=== PATIENT | female | born 1955 | race African-American/Black ===

== ENCOUNTER 2020-10-04 12:21 | Outpatient (CLI) | payer MEDICARE, SELFPAY ==
--- NOTE | ~2020-10-04 | MM_ITS ---
EXAMINATION: MM stereotactic bx RT, MM post biopsy diagnostic RT, MM stereotactic specimen RT, Specim en Radiograph, Tissue Marker Clip Placement, Unilateral Mammogram DATE: 10/04/2020 13:52 (accession [id number]), 10/04/2020 13:50 (accession [id number]), 10/04 13:49 (accession [id number]) INDICATION: Abnormal mammogram: Upper-outer quadrant right breast grouped microcalcifications. TECHNIQUE AND FINDINGS: The risks and potential benefits of the procedure were discussed with the patient and written informe d consent was obtained. Timeout procedure was performed. The patient was placed in the prone position on the dedicated stereotactic table with the right breast in craniocaudal compression, and the area of interest was localized and targeted utilizing digital imaging with stereotaxis. After sterile preparation of the skin, 1% lidocaine was utilized for local anesthesia at the skin pun cture site and 1% lidocaine with epinephrine was utilized for deeper local anesthesia/is about the bi opsy site. A 9G [employer] vacuum assisted biopsy needle was advanced to the level of the calcification o f interest from a cephalad approach utilizing stereotactic guidance and a total of 12 tissue core bio psies were obtained. A specimen radiograph demonstrates that the calcifications of interest are included within the tissue cores. A tissue marker clip was then placed at the biopsy site. A digital mammographic exposure co nfirmed the successful deployment of the biopsy marker. The needle was removed and hemostasis was ac hieved. A sterile bandage was applied. The patient tolerated the procedure well and there is no chriss dence of significant immediate complication. The patient was given verbal as well as written postpro cedural instructions prior to discharge from the department. Tissue cores were submitted to surgical pathology for histologic analysis. A 2-view right unilateral digital mammogram was obtained post procedure, demonstrating the tissue mar ker clip in expected position in the microcalcifications of interest no longer present. IMPRESSION: 1. Successful stereotactic biopsy of upper outer quadrant grouped right microcalcifications, follow ed by tissue marker clip placement. Please refer to pathology report for histologic analysis. Reviewed, dictated and finalized at [facility]. Reviewed, dictated and finalized at location A. IMPRESSION: 1. Successful stereotactic biopsy of upper outer quadrant grouped right micro calcifications, followed by tissue marker clip placement. Please refer to path ology report for histologic analysis. IMPRESSION: 1. Successful stereotactic biopsy of upper outer quadrant grouped right micro calcifications, followed by tissue marker clip placement. Please refer to path ology report for histologic analysis.
== END 2020-10-04 12:22 | disposition home or self-care (01) ==
LOC: ANHIMG 12:25
PROVIDERS: Visit Provider Surgery
DX: R92.8 Other abnormal and inconclusive findings on diagnostic imaging of breast (principal)
CPT/HCPCS: 19081; 77065; 88305; A4648

== ENCOUNTER 2021-04-29 12:39 | Outpatient (CLI) | payer MEDICARE, SELFPAY ==
--- NOTE | ~2021-04-29 | US_ITS ---
EXAMINATION: US thyroid DATE: 04/29/2021 13:19 INDICATION: Goiter. TECHNIQUE: Multiple ultrasound images of the thyroid were obtained. COMPARISON: None. FINDINGS: The right thyroid lobe measures 6.7 x 2.0 x 2.6 cm. The left thyroid lobe measures 7.2 x 4.3 x 4.7 c m. The thyroid demonstrates coarsened echotexture and increased vascularity. In the left thyroid lob e, there is a 5.1 cm solid, hypoechoic, rjmhu-pzhs-lmkd nodule with smooth margin without echogenic f oci (TI-RADS TR4). In the right thyroid lobe, there is a 7 mm solid, hypoechoic, hound-swgn-wjar nodu le with smooth margin without echogenic foci (TR4). IMPRESSION: 1. Thyroid nodules. Ultrasound-guided fine-needle aspiration of the 5.1 cm left thyroid nodule is rec ommended. 2. Heterogeneous, hypervascular thyroid, consistent with chronic lymphocytic (Naheed) thyroiditis. Reviewed, dictated and finalized at location A. ICAL SERVICES TECH IMPRESSION: 1. Thyroid nodules. Ultrasound-guided fine-needle aspiration of the 5.1 cm left thyroid nodule is recommended. 2. Heterogeneous, hypervascular thyroid, consistent with chronic lymphocytic (H ashimoto) thyroiditis.
== END 2021-04-29 12:40 | disposition home or self-care (01) ==
PROVIDERS: PCP Family Medicine; Visit Provider Otolaryngology
DX: E04.2 Nontoxic multinodular goiter (principal)
CPT/HCPCS: 76536

== ENCOUNTER 2021-06-06 13:07 | Outpatient (CLI) | payer MEDICARE, SELFPAY ==
--- NOTE | ~2021-06-06 | MM_ITS ---
EXAMINATION: MM diagnostic janelle RT w seamus HISTORY: Follow-up benign right breast biopsy TECHNIQUE: Additional 3-D tomosynthesis images of the right breast were performed and synthetic 2-D i mages were generated. CAD analysis was submitted and interpreted. COMPARISON: Comparison to multiple prior studies sequentially, with oldest reviewed study dated 09/10. BREAST PARENCHYMAL COMPOSITION: Breast composed of scattered areas of fibroglandular density. FINDINGS: There are tissue markers in the right breast, consistent with previous benign biopsies. The re are no suspicious masses, calcifications or architectural distortion in the right breast to sugges t malignancy. IMPRESSION: 1. No stable right mammogram without evidence for malignancy. 2. Routine yearly screening mammogram and regular clinical breast examination are recommended. BI-RADS Category 2: Benign finding(s). Reviewed, dictated and finalized at location A. MAKER MACHINE IMPRESSION: 1. No stable right mammogram without evidence for malignancy. 2. Routine yearly screening mammogram and regular clinical breast examination a re recommended. BI-RADS Category 2: Benign finding(s).
== END 2021-06-06 13:08 | disposition home or self-care (01) ==
LOC: ANHIMG 13:09
PROVIDERS: PCP Family Medicine; Visit Provider Surgery
DX: R92.8 Other abnormal and inconclusive findings on diagnostic imaging of breast (principal)
CPT/HCPCS: 77061; 77065; G0279

== ENCOUNTER 2021-06-12 09:02 | Outpatient (CLI) | payer MEDICARE, SELFPAY ==
--- NOTE | 2021-06-12 09:15 | ECG_ITS ---
Measurements Intervals [place] Rate: 79 P: 66 PA: 165 QRS: 11 QRSD: 89 T: 38 QT: 353 QTc: 407 Interpretive Statements SINUS RHYTHM BASELINE ARTIFACT- I, III, AVL NORMAL ECG Electronically Signed On 06-12-2021 9:51:34 CHEMICAL MAKER by Fred Lindquist D.O.
[2021-06-12 10:24] LABS: Hematocrit 36.7 % (37.0-47.0); Hemoglobin 11.8 g/dL (12.0-15.0)
[2021-06-12 10:47] LABS: Anion Gap 10 mmol/L (8-16); Blood Urea Nitrogen 26 mg/dL (7-17); Calcium 9.7 mg/dL (8.4-10.2); Carbon Dioxide 29 mmol/L (22-30); Chloride 102 mmol/L (98-107); Estimated Glomerular Filt Rate 50; Glucose 119 mg/dL (65-110); Potassium 4.2 mmol/L (3.4-5.0); Sodium 141 mmol/L (137-145)
== END 2021-06-12 09:03 | disposition home or self-care (01) ==
LOC: ANHSURGERY 09:05
PROVIDERS: Anesthesiology; PCP Family Medicine; Visit Provider Otolaryngology
DX: E11.9 Type 2 diabetes mellitus without complications (principal); D64.9 Anemia, unspecified; Z01.818 Encounter for other preprocedural examination; R94.31 Abnormal electrocardiogram [ECG] [EKG]
CPT/HCPCS: 36415; 80048; 85014; 85018; 93005

== ENCOUNTER 2021-06-14 02:07 | Day surgery (SDC) | payer MEDICARE, SELFPAY ==
[2021-06-10 14:51] VITALS: BMI 31.6
--- NOTE | 2021-06-10 15:00 | PC.NURSE ---
Report to the Outpatient Waiting Room, entrance under the green pavilion located off [facility], at time _0815__ on date _06/14/21_. OR Time: _1015__. - You and your visitor will be asked a series of questions to screen for COVID 19 for your protection. - A mask is required within the hospital. - NO visitors are allowed at this time. Patient visitors will be guided where to wait when not with patient. Preoperative COVID Testing Requirements: No COVID Test needed if: (proof is required; if not received patient will have Rapid Test prior to entry) - Patient has received COVID Vaccine at least 14 days prior to procedure date or - Patient has positive COVID test result within last 90 days of surgery date. COVID Test needed if above criteria is not met If not COVID vaccinated a COVID test must be conducted within 72 hours of surgery and patient is asked to isolate self from time of testing until procedure. You will go to the [facility] for your COVID testing. The [facility] is located at the corner of [address] [facility]. You will only be called if COVID results are positive and your surgeon may reschedule your elective surgery date. Patients may have clear liquids (water, carbonated beverages, clear teas, apple juice) until 3 hours prior to surgery with a maximum of 20 ounces. (0715 AM) - No food from midnight until time of surgery - Infants may have breast milk until 4 hours before surgery, formula 6 hours prior to surgery. - Children will be allowed to drink immediately following surgery. If applicable, please bring a bottle or sippy cup to assist with drinking. Juice, water, soda, and popsicles are readily available. For infants on formula, please bring formula the day of surgery. Pacifiers are allowed. Take the following medications with a SIP of water the morning of surgery: __AMLODIPINE, GABAPENTIN__ Medications to discontinue per ANESTHESIA ___VIT D3__ Date to take last dose 06/10/21 Please no make-up, nail faroese, hairspray, perfume, deodorant, or body powder the day of surgery. No jewelry (including any body piercings) or valuables the day of surgery, leave them at home. Please take a shower or bath the night before, or the morning of, surgery with an antibacterial soap. Wear comfortable, loose fitting clothing. Children are encouraged to wear pajamas. - Jewelry must be removed prior to entering the operating room. Rings and piercings that are not removed may be cut off. - The hospital will not accept responsibility for valuables. - Please leave all valuables, including medications, at home the day of surgery. If you are going home after surgery, a licensed driver education instructor must drive you home. - NO public transportation without another adult. - We recommend that an adult stay with you for 24 hours following discharge. - We also recommend that you do not drive, make important decision, drink alcoholic beverages, or take any drugs that were not prescribed by your health care provider for at least 24 hours after your discharge time. For Pediatric surgeries, we recommend two adults accompany the child home (only one inside the building at this time). Follow any additional instructions given to you from your surgeon. Telephone instructions given to ___PT and asked if any additional questions and then verbalized understanding. Patient advised to call surgeon office or pre surgery nurse liaison [phone] if any additional questions.
--- NOTE | 2021-06-13 14:58 | WPDANESEPPF ---
Anes - Initial Pre Proc Eval Procedure: Operation Date: 06/14/21 10:00 Proposed Procedures p Left Thyroidectomy with Pharyngeal Nerve Monitor - Mazin Crandall MD Date/Time: 06/13/21 14:58 Surgeon: Mazin Crandall MD Pre Op Diagnosis: left thyroid goiter Patient Data Age: 66 Gender: F Height: 1.71 m Weight: 93.18 kg Allergies Allergy/AdvReac Type Severity Reaction Status Date / Time No Known Allergies Allergy Verified 06/14/21 10:19 Home Medications Medication Instructions Recorded Confirmed Type atorvastatin 40 mg tablet 40 mg PO DAILY 09/21/19 06/10/21 History chlorthalidone 25 mg tablet 25 mg PO DAILY 09/21/19 06/10/21 History ertugliflozin 15 mg tablet 15 mg PO QAM 09/21/19 06/10/21 History ferrous fumarate 325 mg (106 mg 325 mg PO DAILY 09/21/19 06/10/21 History iron) tablet gabapentin 600 mg tablet 600 mg PO BID 09/21/19 06/10/21 History lisinopril 40 mg tablet 40 mg PO DAILY 09/21/19 06/10/21 History metformin 500 mg tablet 500 mg PO BID 09/21/19 06/10/21 History omeprazole 20 mg capsule,delayed 20 mg PO DAILY 09/21/19 06/10/21 History release pioglitazone 30 mg tablet 30 mg PO DAILY 09/21/19 06/10/21 History amlodipine 10 mg tablet 10 mg PO DAILY 04/04/20 06/10/21 History dulaglutide 0.75 mg/0.5 mL 0.75 mg SUBCUT WEEKLY 04/04/20 06/10/21 History subcutaneous pen injector cholecalciferol (vitamin D3) 25 mcg PO DAILY 06/10/21 06/10/21 History Patient hx anesthesia problems: none Family hx anesthesia problems: none Results Review: All pre-operative results and documents have been reviewed as part of the pre-operative evaluation. [facility] Past Medical History Medical History Diabetes High cholesterol History of colon cancer Hypertension Surgical History Surgical History History of colon resection Family History Family History Father Diabetes mellitus Social History Social History Smoking packs per day: 0.75 Smoking cigarettes per day: 15.0 Years smoked: 25 Smoking pack-years: 18.75 Smoking status: Former smoker Tobacco type: cigarettes Second hand tobacco smoke exposure: No Smoking end date: 08/07/15 Alcohol intake: never Substance use: current Substance use type: marijuana Other substance usage details: PT STATES ABOUT 10 HITS/WEEK Living arrangements: alone Occupation/Education: retired Spiritual care concerns: No Anes - Eval Final PreProcedure Day of Procedure 06/13/21 14:58 Patient weight: obese Heart: regular rate and rhythm Lungs: clear to auscultation and normal air movement Airway: Mallampati scale class II Neurological: alert and oriented Last oral intake: >/= 8 hours ASA classification: III Emergent: no Anesthetic plan: proceed Anesthesia type and monitoring: general ETT and standard monitoring Results Review: All pre-operative results and documents have been reviewed as part of the pre-operative evaluation. Informed Consent: The patient's anesthetic plan and its attendant risks and benefits were discussed with the patient/family/POA. Questions were solicited and answers provided to the satisfaction of the patient/family/POA.
--- NOTE | 2021-06-13 17:21 | PM.IMHP ---
H&P: HPI History of Present Illness Date/Time: 06/13/21 17:21 Chief Complaint: Choking coughing gagging left thyroid goiter Narrative: patient presents for planned surgical procedure no change in symptoms no change in history Review of Systems Constitutional: Constitutional: Denies fatigue, Denies fever(s) and Denies lethargy Eyes: Eyes: Denies blurry vision and Denies change in vision ENT: Reports as per HPI Cardiovascular: Cardiovascular: Denies chest pain Respiratory: Respiratory: Denies cough Endocrine: Endocrine: Denies fatigue Hematologic/Lymphatic: Hematologic/Lymphatic: Denies easy bleeding, Denies easy bruising and Denies lymphadenopathy Allergic/Immunologic: Allergic/Immunologic: Denies seasonal rhinorrhea [facility] Past Medical History Medical History Diabetes High cholesterol History of colon cancer Hypertension Surgical History Surgical History History of colon resection Family History Family History Father Diabetes mellitus Social History Social History Smoking packs per day: 0.75 Smoking cigarettes per day: 15.0 Years smoked: 25 Smoking pack-years: 18.75 Smoking status: Former smoker Tobacco type: cigarettes Second hand tobacco smoke exposure: No Smoking end date: 08/07/15 Alcohol intake: never Substance use: current Substance use type: marijuana Other substance usage details: PT STATES ABOUT 10 HITS/WEEK Spiritual care concerns: No Meds Home Medications and Allergies Home Medications Medication Instructions Recorded Confirmed Type atorvastatin 40 mg tablet 40 mg PO DAILY 09/21/19 06/10/21 History chlorthalidone 25 mg tablet 25 mg PO DAILY 09/21/19 06/10/21 History ertugliflozin 15 mg tablet 15 mg PO QAM 09/21/19 06/10/21 History ferrous fumarate 325 mg (106 mg 325 mg PO DAILY 09/21/19 06/10/21 History iron) tablet gabapentin 600 mg tablet 600 mg PO BID 09/21/19 06/10/21 History lisinopril 40 mg tablet 40 mg PO DAILY 09/21/19 06/10/21 History metformin 500 mg tablet 500 mg PO BID 09/21/19 06/10/21 History omeprazole 20 mg capsule,delayed 20 mg PO DAILY 09/21/19 06/10/21 History release pioglitazone 30 mg tablet 30 mg PO DAILY 09/21/19 06/10/21 History amlodipine 10 mg tablet 10 mg PO DAILY 04/04/20 06/10/21 History dulaglutide 0.75 mg/0.5 mL 0.75 mg SUBCUT WEEKLY 04/04/20 06/10/21 History subcutaneous pen injector cholecalciferol (vitamin D3) 25 mcg PO DAILY 06/10/21 06/10/21 History Allergies Allergy/AdvReac Type Severity Reaction Status Date / Time No Known Allergies Allergy Verified 06/10/21 14:44 Exam Const: General: cooperative, healthy appearing, comfortable, well developed and alert HENMT: Head: normal to inspection, normocephalic and atraumatic Ears: hearing grossly normal bilaterally, external ears normal, TM's normal bilaterally and EAC's normal General nose exam: Normal external nose present, Normal nares present, No nasal polyps present, Normal nasal mucous membranes and turbinates present and Normal septum present Face and sinus: normal facial exam Mouth: Yes Normal oral and palatal mucosa present, Yes lip normal, Yes tongue normal, Yes oropharynx normal and Yes moist mucous membranes Teeth and gingiva: dentition normal and gingiva normal Throat: posterior oropharynx normal, tonsils normal and uvula midline Eyes: General: appearance normal, both eyes and all related structures Periorbital: periorbital findings normal Eyelids: eyelids normal Conjunctivae: conjunctivae normal Sclera: sclerae normal Neck: Neck: not normal to visual inspection ( large goiter), full ROM and no lymphadenopathy Thyroid: abnormal thyroid and diffusely enlarged Lymphatic: no lymphadenopathy noted Resp: Effort &
[2021-06-14] VITALS (9 sets, daily range): BP systolic 142–168; BP diastolic 62–78; PULSE 87–116; RESP 12–16; TEMP 36.6–37.6; O2SAT 92–100; BMI 32.1
--- NOTE | 2021-06-14 07:13 | WPDHPUPDATE1 ---
History and Physical Update Update Date/Time: 06/14/21 07:13 History and Physical has been reviewed, including an updated exam of the patient. There are NO changes in the patient's condition. Risks, benefits, and alternatives have been discussed and questions answered. Patient agrees to proceed with procedure.
[2021-06-14] MEDS: LACTATED RINGERS 1,000 ML 30 ML IV CONT ×2 (10:30→13:56)
[2021-06-14] MEDS: ACETAMINOPHEN 500 MG TABLET 1000 MG PO (10:31)
[2021-06-14 10:44] LABS: Glucose Point of Care 106 mg/dl (65-105)
[2021-06-14] MEDS: ceFAZolin 2 GM/D5W 50 ML 2 GM/50 ML BAG IVPB (11:40)
[2021-06-14] MEDS: LIDO 1%/EPINEPHRINE 1:100,000 50 ML VIAL INFILTRATE (12:25)
[2021-06-14 14:02] LABS: Glucose Point of Care 134 mg/dl (65-105)
[2021-06-14] MEDS: fentaNYL CITRATE INJ (*CRX) 100 MCG/2 ML VIAL 25 MCG IV PUSH ×4 (14:15→14:35)
--- NOTE | 2021-06-14 14:34 | W.PM.PROC2 ---
Procedure Note - Detailed Date of Procedure 06/14/21 Pre-op Diagnosis left thyroid goiter irregular, choking, compression Post-op Diagnosis same Procedure Performed 1. Left thyroid lobectomy with recurrent laryngeal nerve monitoring Surgeon Mazin Crandall MD Anesthesia general Indications See above Findings Large left thyroid goiter removed almost completely in totality small left superior portion left nodule removed. Recurrent laryngeal nerve deep to operative field the entire case small portions stimulated at the end small visual with visible portion stimulated at the end at setting of 1. Description of Procedure Patient identified consent verified. Patient brought operating room. Time-out performed. General anesthesia induced endotracheal tube secured, Nims monitoring, taped into place. Patient prepped and draped for the aforementioned procedure. Second time-out performed. 3 cc 1% lidocaine 1 100,000 parts epinephrine epinephrine injected deep to 7 cm pre drawn surgical incision modified Singh Latosha in fashion. Collar-type. The 15 blade utilized to dissect through skin cut through skin. Bovie electrocautery utilized to cut and dissect deep to the platysma superior and inferior based subplatysmal flaps elevated left anterior jugular vein was very very very large. Ligated with 2-0 silk suture. Midline raphe identified dissected with Bovie electrocautery and blunt dissection sternohyoid sternothyroid muscle identified removed off thyroid 1 cm sternohyoid of freed superiorly for access thyroid dissected around using blunt dissection with peanuts as well as ligature to ligate the superior pole vessels superior pole small portion left eye given its size and superior orientation. Thyroid rotated inferior and medially middle thyroid vein ligated inferior thyroid vasculature removed no parathyroids identified given the close dissection to the thyroid capsule thyroid then pulled medially and freed a not necessarily freed but moved through the wound. The thyroid was then cut leaving a small portion or over the very very small portion over the ligament of León region. At this time a small portion of the left-sided recurrent laryngeal nerve was identified it is essentially deep to the operative field and stimulated at a setting of 1. The wound was then copiously irrigated. The thyroid specimen was identified were examined for any parathyroid glands, none were identified. Anesthesia then Valsalva and no bleeding was noted, no further bleeding was noted, 10 Pashto drain placed sutured to the skin with 3-0 drain stitch. The strap muscles were sutured superiorly with 3-0 interrupted Vicryl sutures platysma and deep levels closed with 3-0 interrupted Vicryl sutures the deep dermal layer was closed with 4-0 interrupted Vicryl sutures which was perfectly approximated the skin. The skin was then glued with skin glue. Care the patient was turned over to Anesthesiology. I performed all dictated portions of the procedure. There were no immediate complications. Total blood loss approximately 25 cc Estimated Blood Loss -25.0 Drains Yes Packing No Pathology yes Complications No immediate complications Condition stable Disposition PACU
[2021-06-14] MEDS: oxyCODONE HCL (*CRX) 5 MG TAB IR PO (15:56)
== END 2021-06-14 16:15 | disposition home or self-care (01) ==
PROVIDERS: PCP Family Medicine; Visit Provider Otolaryngology
PROC: (CPT 60210; principal; 2021-06-14 11:00)
DX: E04.1 Nontoxic single thyroid nodule (principal); E11.9 Type 2 diabetes mellitus without complications; I10 Essential (primary) hypertension; E78.00 Pure hypercholesterolemia, unspecified; Z85.038 Personal history of other malignant neoplasm of large intestine; Z87.891 Personal history of nicotine dependence; F12.90 Cannabis use, unspecified, uncomplicated; Z79.84 Long term (current) use of oral hypoglycemic drugs; Z79.899 Other long term (current) drug therapy
CPT/HCPCS: 60210; 36415; 80048; 82948; 85014; 85018; 88307; 93005; A9270; J0330; J0690; J1100; J2250; J2405; J2704; J3010; J7120

== ENCOUNTER 2021-07-25 14:13 | Outpatient (CLI) | payer MEDICARE, SELFPAY ==
[2021-07-25 15:18] LABS: Thyroid Stimulating Hormone 0.795 uIU/mL (0.465-4.680)
== END 2021-07-25 14:14 | disposition home or self-care (01) ==
PROVIDERS: PCP Family Medicine; Visit Provider Otolaryngology
DX: E03.9 Hypothyroidism, unspecified (principal)
CPT/HCPCS: 36415; 84443

== ENCOUNTER 2022-01-17 15:19 | Outpatient (CLI) | payer MEDICARE, SELFPAY ==
--- NOTE | ~2022-01-17 | MM_ITS ---
EXAMINATION: MM screening janelle BI w seamus HISTORY: Screening TECHNIQUE: Craniocaudal and mediolateral oblique 3-D tomosynthesis images were obtained and synthetic 2-D images were generated. CAD analysis was submitted and interpreted. COMPARISON: Comparison to multiple prior studies sequentially, with oldest reviewed study dated 09/10. BREAST PARENCHYMAL COMPOSITION: The breasts are heterogeneously dense, which may obscure small masses . FINDINGS: There is no evidence of suspicious mass, calcification, or architectural distortion to sugg est malignancy in either breast. There has been no suspicious interval change. IMPRESSION: 1. No mammographic evidence of malignancy. 2. Recommend routine screening mammography in one year. BI-RADS Category 1: Negative Reviewed, dictated and finalized at location A.
== END 2022-01-17 15:20 | disposition home or self-care (01) ==
LOC: ANHIMG 15:20
PROVIDERS: PCP Family Medicine; Visit Provider Surgery
DX: Z12.31 Encounter for screening mammogram for malignant neoplasm of breast (principal)
CPT/HCPCS: 77063; 77067

== ENCOUNTER 2023-07-29 13:30 | Outpatient (CLI) | payer MEDICARE, SELFPAY ==
--- NOTE | ~2023-07-29 | MM_ITS ---
EXAMINATION: MM screening janelle BI w seamus HISTORY: Screening mammogram TECHNIQUE: Craniocaudal and mediolateral oblique 3-D tomosynthesis images were obtained and synthetic 2-D images were generated. CAD analysis was submitted and interpreted. COMPARISON: 01/17/2022 bilateral screening mammogram 06/06/2021 diagnostic right mammogram 09/17/2020 diagnostic right mammogram 09/10/2020 bilateral screening mammogram BREAST PARENCHYMAL COMPOSITION: FINDINGS: There are 2 biopsy markers on the right; history of 2 prior breast biopsies. There is no ev idence of suspicious mass, calcification, or architectural distortion to suggest malignancy in either breast. There has been no suspicious interval change. IMPRESSION: 1. No mammographic evidence of malignancy. 2. Recommend routine screening mammography in one year. BI-RADS Category 1: Negative Reviewed, dictated and finalized at location A. L MAKER
== END 2023-07-29 13:31 ==
PROVIDERS: PCP Family Medicine; Visit Provider Family Medicine
DX: Z12.31 Encounter for screening mammogram for malignant neoplasm of breast (principal)
CPT/HCPCS: 77063; 77067